=== PATIENT | female | born 1965 | race Caucasian/White ===

== ENCOUNTER 2021-12-28 10:14 | Outpatient (CLI) | payer OTHER, SELFPAY ==
[2021-12-28 10:35] LABS: Hematocrit 43.4 % (35.0-49.0); Hemoglobin 14.7 g/dL (12.0-15.0); Mean Corpuscular HGB Conc 33.9 g/dL (32.0-36.0); Mean Corpuscular Hemoglobin 33.1 pg (27.0-31.0); Mean Corpuscular Volume 97.7 fL (78.0-102.0); Platelet Count Result 254 K/mm3 (150-420); Red Blood Count 4.44 M/mm3 (4.20-5.40); Red Cell Distribution Width 12.6 % (11.6-14.4); White Blood Count 5.2 K/mm3 (4.8-10.8)
[2021-12-28 10:36] LABS: Appearance Urine Clear (Clear); Bilirubin Urine Negative (Negative); Color Urine Light Yellow (Yellow); Glucose Urine UA Negative (Negative); Ketones Urine Negative (Negative); Leukocyte Esterase Ur Trace (Negative); Nitrate Urine Negative (Negative); Protein Urine Negative (Negative); Urobilinogen Urine 0.2 mg/dL (0.2-1.0)
[2021-12-28 10:41] LABS: Add Urine Microscopic? YES; Blood Urine Trace-Intact (Negative); RBC Urine 0-2 /hpf (0-2); WBC Urine 0-3 /hpf (0-3)
[2021-12-28 10:42] LABS: Bacteria Urine Trace /hpf; Squamous Epithelial Cell Urine Few /hpf (Few)
[2021-12-28 11:08] LABS: Band Neutrophils Percent 0 % (0-6); Eosinophils Absolute Manual 0.62 K/mm3 (0.02-0.5); Eosinophils Percent Manual 12 % (1-6); Lymphocytes Absolute Manual 1.87 K/mm3 (1.1-4.5); Lymphocytes Percent Manual 36 % (18-44); Monocytes Absolute Manual 0.46 K/mm3 (0.1-0.90); Monocytes Percent Manual 9 % (3-9); Neutrophils Absolute Manual 2.23 K/mm3 (1.7-7.2); Neutrophils Percent Manual 43 % (46-73); Platelet Estimate Adequate (Adequate); Total Cells Counted 100
[2021-12-28 12:32] LABS: Alanine Aminotransferase 30 U/L (14-59); Alkaline Phosphatase 99 U/L (46-116); Anion Gap 12 mmol/L (8-16); Aspartate Amino Transferase 26 U/L (15-37); Bilirubin,Total 0.3 mg/dL (0.00-1.00); Blood Urea Nitrogen 17 mg/dL (7-18); Calcium 9.3 mg/dL (8.5-10.1); Carbon Dioxide 29 mmol/L (21-32); Chloride 104 mmol/L (98-108); Cholesterol 226 mg/dL (0-200); Estimated Glomerular Filt Rate > 60; Glucose 82 mg/dL (70-99); HDL Direct 57 mg/dL (40-60); LDL Cholesterol Calculated 146 mg/dL (<130); Osmolality Calculated 300 mOsm/kg (285-295); Potassium 4.3 mmol/L (3.5-5.1); Sodium 145 mmol/L (136-145); Thyroid Stimulating Hormone 1.35 uIU/mL (0.36-3.74); Triglycerides 115 mg/dL (0-150); Vitamin B12 454 pg/mL (193-986)
[2022-01-01 22:58] LABS: Methylmalonic Acid 161 nmol/L (87-318)
== END 2021-12-28 10:15 | disposition home or self-care (01) ==
LOC: CHSLAB 10:19
PROVIDERS: PCP Internal Medicine; Visit Provider Internal Medicine
DX: Z00.00 Encounter for general adult medical examination without abnormal findings (principal); E53.8 Deficiency of other specified B group vitamins
CPT/HCPCS: 36415; 80053; 80061; 81001; 82607; 83921; 84443; 85025

== ENCOUNTER 2023-02-12 08:16 | Outpatient (CLI) | payer OTHER, SELFPAY ==
--- NOTE | ~2023-02-12 | XR_ITS ---
XR chest 2V DATE: 02/12/2023 09:00 INDICATION: History of right breast cancer, hypertension. Previous smoker. TECHNIQUE: 2 views COMPARISON: 03/11/2010 PA and lateral chest FINDINGS: Normal heart size. No hilar or mediastinal enlargement. There is eventration of the anterior portion of the right leaf of the diaphragm. No pulmonary infiltrate or consolidation, pleural effusion or pulmonary vascular congestion or pneumo thorax. There is osteopenia. Surgical clips overlie the right upper abdomen, likely due to cholecystectomy. IMPRESSION: No active cardiopulmonary disease Right diaphragmatic eventration Reviewed, dictated and finalized at location L.
[2023-02-12 08:33] LABS: Hematocrit 42.6 % (35.0-49.0); Hemoglobin 14.2 g/dL (12.0-15.0); Mean Corpuscular HGB Conc 33.3 g/dL (32.0-36.0); Mean Corpuscular Volume 95.9 fL (78.0-102.0); Mean Platelet Volume 8.9 fl (9.2-11.8); Platelet Count Result 265 K/mm3 (150-420); Red Blood Count 4.44 M/mm3 (4.20-5.40); Red Cell Distribution Width 12.9 % (11.6-14.4); White Blood Count 5.2 K/mm3 (4.8-10.8)
--- NOTE | 2023-02-12 08:39 | ECG_ITS ---
Measurements Intervals [place] Rate: 59 P: -12 CO: 143 QRS: 56 QRSD: 105 T: 46 QT: 403 QTc: 400 Interpretive Statements SINUS BRADYCARDIA NONDIAGNOSTIC INJURY Q-WAVES BORDERLINE ECG NO PREVIOUS ECG AVAILABLE FOR COMPARISON Electronically Signed On 02-12-2023 16:33:41 CDT by Shaheed Devlin M.D.
[2023-02-12 08:47] LABS: Appearance Urine Clear (Clear); Bilirubin Urine Negative (Negative); Blood Urine Negative (Negative); Color Urine Yellow (Yellow); Glucose Urine UA Negative (Negative); Ketones Urine Negative (Negative); Leukocyte Esterase Ur Negative (Negative); Nitrate Urine Negative (Negative); Protein Urine Negative (Negative); Urobilinogen Urine 0.2 mg/dL (0.2-1.0)
[2023-02-12 09:07] LABS: Band Neutrophils Percent 0 % (0-6); Eosinophils Absolute Manual 0.31 K/mm3 (0.02-0.5); Eosinophils Percent Manual 6 % (1-6); Lymphocytes Absolute Manual 1.82 K/mm3 (1.1-4.5); Lymphocytes Percent Manual 35 % (18-44); Monocytes Absolute Manual 0.41 K/mm3 (0.1-0.90); Monocytes Percent Manual 8 % (3-9); Neutrophils Absolute Manual 2.65 K/mm3 (1.7-7.2); Neutrophils Percent Manual 51 % (46-73); Platelet Estimate Adequate (Adequate); Total Cells Counted 100
[2023-02-12 09:12] LABS: Alanine Aminotransferase 44 U/L (14-59); Albumin Level 3.9 g/dL (3.4-5.0); Alkaline Phosphatase 115 U/L (46-116); Anion Gap 8 mmol/L (8-16); Aspartate Amino Transferase 21 U/L (15-37); Bilirubin,Total 0.3 mg/dL (0.00-1.00); Blood Urea Nitrogen 16 mg/dL (7-18); Calcium 9.3 mg/dL (8.5-10.1); Carbon Dioxide 31 mmol/L (21-32); Chloride 102 mmol/L (98-108); Cholesterol 262 mg/dL (0-200); Estimated Glomerular Filt Rate > 60; Glucose 88 mg/dL (70-99); HDL Direct 57 mg/dL (40-60); LDL Cholesterol Calculated 170 mg/dL (<130); Osmolality Calculated 292 mOsm/kg (285-295); Potassium 4.5 mmol/L (3.5-5.1); Sodium 141 mmol/L (136-145); Thyroid Stimulating Hormone 2.14 uIU/mL (0.36-3.74); Total Protein 7.3 g/dL (6.4-8.2); Triglycerides 173 mg/dL (0-150)
[2023-02-12 09:24] LABS: Add Urine Microscopic? NO
== END 2023-02-12 08:17 | disposition home or self-care (01) ==
LOC: CHSLAB 08:19
PROVIDERS: PCP Internal Medicine; Visit Provider Internal Medicine
DX: Z00.00 Encounter for general adult medical examination without abnormal findings (principal); I10 Essential (primary) hypertension
CPT/HCPCS: 36415; 71046; 80053; 80061; 81003; 84443; 85025; 93005

== ENCOUNTER 2023-03-03 11:30 | Outpatient (CLI) | payer OTHER, SELFPAY ==
--- NOTE | ~2023-03-03 | XR_ITS ---
Lumbosacral Spine: AP and lateral views Clinical History: Pain Findings: The normal lordotic curve is maintained. 8 mm anterolisthesis of L4 over L5 noted. No fract ure seen. There is moderate facet arthropathy from L3 through S1. There is mild to moderate degenerat rg disc change at L4-L5, L5-S1. There is mild degenerative disc change at the upper lumbar spine. Th e sacroiliac joints are normally outlined. Impression: 8 mm anterolisthesis of L4 over L5. Mild to moderate degenerative change, as above. Reviewed, dictated and finalized at location M. Impression: 8 mm anterolisthesis of L4 over L5. Mild to moderate degenerative change, as above.
== END 2023-03-03 11:31 | disposition home or self-care (01) ==
LOC: CHSIMG 11:33
PROVIDERS: PCP Internal Medicine
DX: M54.50 Low back pain, unspecified (principal); M43.16 Spondylolisthesis, lumbar region
CPT/HCPCS: 72100

== ENCOUNTER 2023-03-09 08:25 | Outpatient (RCR) | payer OTHER, SELFPAY ==
--- NOTE | 2023-03-09 09:13 | PTOPEVAL1 ---
Assessment and note entered by Lb Sumner Evaluation Information Assessment Status Evaluation Diagnosis back pain Onset 03/09/22 Subjective Information Pt. reports that she developed low back pain close to 1 year ago. She reports that she had a fall down her steps around that time that developed her LBP. She was suppose to participate in therapy a long time ago, but developed Covid and did not attend therapy. She describes her pain around the area of the right PSIS. She reports she underwent xray last week which demonstrated an 8mm anteriolesthesis at L4-L5. She reports that pain can be constant for the most part. She states that it is worsened with standing for long periods of time, as well as sitting for long periods of time. She reports that getting out of a car is difficult due to pain. She reports that pain will wake her at night, espeicially with attempting to turn in bed. 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 She reports that her pain limits limits her from walking any adequate distance or standing for any adequate duration. She enjoys yard work, but cannot due to the increase in pain associated with doing these tasks . Reported Pain Level Pain Score 5: Self Report Assessment PT Clinical Summary Pt. is a 57 year old female who enters the clinic with low back pain. she presents with abdominal and proximal l.e. weakness, impaired postural awareness, impaired flexibility, and pain on this date. Continued skilled PT is indicated in order to improve these areas to allow the pt. to be able to complete all IADL's with improved comfort and efficiency. Plan of Care Interventions Electrical Stimulation,Gait Training,Hot Pack/Cold Pack,Manual Therapy,Patient/Caregiver Educati, Therapeutic Activities,Therapeutic Exercise,Self- Care/Home Management PT Services Indicated Yes Treatment Frequency and 2x/week x 10 visits Duration These treatments will address the objective and functional deficits as defined above. The patient will be advanced safely and appropriately in order for the patient to progress towards his/her prior level of function. Additional exercises will be introduced and as well as a comprehensive home exercise program upon discharge, if needed, ?to ensure carryover of functional gains achieved in the clinic. This chapito
== END 2023-04-08 09:50 | disposition home or self-care (01) ==
LOC: CHSPT 08:25
PROVIDERS: PCP Internal Medicine; Visit Provider Internal Medicine
DX: M54.9 Dorsalgia, unspecified (principal)
CPT/HCPCS: 97014; 97110; 97140; 97161; G0283

== ENCOUNTER 2025-05-04 08:55 | Outpatient (CLI) | payer OTHER, SELFPAY ==
--- NOTE | ~2025-05-04 | XR_ITS ---
EXAM/PROCEDURE: XR chest 2V - 05/04/2025 9:00 CDT HISTORY: 60 years old Female with HTN, cough, fatigue TECHNIQUE: Two view(s) of the chest. COMPARISON: None available. FINDINGS: LUNGS/ PLEURA: No focal consolidation. No appreciable pneumothorax or large pleural effusion. HEART/ MEDIASTINUM: Heart appears normal in size. BONES: No acute osseous abnormality. OTHER: Visualized upper abdomen is unremarkable. IMPRESSION: No acute process. Reviewed, dictated and finalized at location A. IMPRESSION: No acute process.
--- OUTSIDE RECORDS SUMMARY | 2025-05-04 09:04 | XMS_ITS | Data Portability ---
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 Stage I ductal carcinoma of the right breast: Clinically stable, without evidence of recurrence. MMG in May 2023 looked stable 2. Osteoporosis: Stable in July 2023. 10-year risk of hip fracture or major osteoporotic fracture are 2% and 15% respectively. She would prefer to avoid bisphosphonates or denosumab due to risk of osteonecrosis, continue calcium, vitamin D. 3. Joint pains: Primarily due to arthritis. Probably exacerbated by anastrazole. PLAN She is to continue with her anastrozole through September 2024. Her CBC from January 27, 2024 reveals WBC of 6.0, Hgb of 14.0, platelet count of 292,000 and ANC of 2.88. This was reviewed with her at the time of her visit. She was to have iron panel, vitamin D and Vitamin B12 level obtained. These were not obtained in January. We will get these today. She is due for repeat bone density in September 2025. Her most recent report revealed low bone density. She is on high risk medication, anastrozole, which may contribute to a decline in bone density. Her next mammogram will be due in May 2024. She is due for MRI of the breast in November 2024. These are ordered per her family services specialist. She is to return in six months with CBC, CMP and office visit. We will add iron panel and vitamin B12 level depending upon the results from this lab today. Sonali was encouraged to call should she have any problems or concerns between now and her next visit. She verbalizes understanding. I personally reviewed prior notes, treatment plans, labs, radiology reports and other reports as appropriate. I personally spent a total of 37 minutes on this patient on this date of service including both mdad-pw-qumw and ggb-bwoo-xt-face time excluding any separately reportable services. HISTORY OF PRESENT ILLNESS. - History of HER-2 positive breast cancer. - Completed 10 cycles of adjuvant chemotherapy with docetaxel and cyclophosphamide. - Completed her last cycle of trastuzumab back on May 25, 2015. - On adjuvant anastrazole. She will complete 10 years of this therapy in September 2024. SUBJECTIVE Patient of Dr. Warner Swan. Sonali returns to the office today for a scheduled follow up visit for her right breast cancer. She was last seen in the office on September 08, 2023. She complains of pain in the lower right back, right knee and both thumb joints. She rates this pain as a 4 on a scale of 0-10 with 10 being the worst. She rates her emotional status as a 10 on a scale of 0-10 with 10 being excellent. She complains of some neuropathy that is mild in nature. She denies the use of alternative therapies. She denies any fever, chills, body aches, headaches, nausea, vomiting, diarrhea, loss of smell or taste, sore thoat, shortness of breath, or other symptoms of infection. REVIEW OF SYMPTOMS/SYSTEMS: She does not complain of the following symptoms: Fever/chills, Fatigue/weakness, Appetite changes, Changes in sleep habits, Bruising/bleeding, Fluid retention, Pain, Visual changes, Itching/tearing eyes, Ringing in the ears, Epistaxis, Stomatitis, Difficulty swallowing, Chest pain, Rapid or irregular heartbeat, Dyspnea, Cough, Nausea/vomiting, Constipation, Diarrhea, Indigestion/gas, Blood in stools, Changes in urination, Changes in menses, Sexual concerns, Rashes, Hair loss, Nail changes, Muscle weakness, Loss of memory/concentration , Headaches, Dizziness, Cold sensitivity, Emotional complaints. She takes medications for COPD, breast cancer, migraines. These issues are stable except as listed above. For details of past history, see assessment. She denies any changes to past medical history, social history, personal and family history since her visit on September 08, 2023. PHYSICAL EXAM: PERFORMANCE STATUS: 90% Karnofsky. Head: Normocephalic. Eyes: Pupils round, equal and reactive. EOM intact. No scleral icterus or erythema is noted. Ears: Hearing is grossly normal. Mouth/Throat: Mucous membranes are moist. No erythema, exudate, injection, or oral lesions are noted. Lymphatics: No cervical, supraclavicular or axillary lymphadenopathy noted. Lungs: Clear bilaterally. Heart: Normal S1 and S2. Regular rhythm without murmurs. Breast: Right breast lumpectomy incision is well healed. There is no evidence of local recurrence. There are no dominant masses noted in either breast. Abdomen: Soft, nontender wall. No obvious masses, hepatosplenomegaly or hernias. Extremities: No cyanosis or clubbing. No edema. Neurological: Alert and oriented. No focal deficits. Psychiatric: Mood and affect are appropriate. Skin: No bruising or petechia noted. No rashes noted. ONCOLOGY THERAPY DIAGNOSIS: 1. Stage 1 (pT1b, pN0, R-, M0) invasive ductal carcinoma of the right breast, 1 cm in greatest dimension, nuclear grade 2 or 3, without lymph or vascular invasion. Strongly positive for estrogen receptors and moderately positive for progesterone receptors, HER2/waldemar equivocal by immunohistochemistry . Testing was equivocal of FISH and was positive on repeat. 2. Osteopenia (low bone mass) CURRENT THERAPY: 1. Adjuvant anastrazole 1 mg PO daily starting 09/29/14. PREVIOUS THERAPY: 1. Ultrasound guided core biopsy of the right breast, March 14, 2014. 2. Right breast lumpectomy and sentinel node biopsy on March 30, 2014 at [facility], Dr. Javi Basilio, surgeon. 3. Six cycles of adjuvant docetaxel 75 mg/m2 day 1, and cyclophosphamide 600 mg/m2 day 1, every 21 days staring May 11, 2014. Herceptin was added (4 mg/kg) with cycle 2 after the repeat testing of HER2/waldemar came back positive. 4. Adjuvant radiation to the right breast. She started treatment on September 19, 2014. After 16 fractions of whole breast irradiation at the daily dose of 2.66 Gy, an electron beam boost was set up to treat the inner portion of the right breast at the 3 o'clock position using a 9 x 9-cm cutout with 12 MeV electrons at the 90% isodose line. A daily dose of 2 Gy was planned for the boost, and 4 boost fractions delivered. The patient then completed the boost treatment on October 17, 2014. A total dose of 50.56 Gy had been delivered to the lumpectomy site. 5. Adjuvant trastuzumab 6 mg/kg day 1 every 21 days starting September 15, 2014. Completed 11 additional cycles of May 25, 2015. Assessment Assessed 1. Breast cancer, right breast (C50.911) 2. Osteopenia (M85.80) 3. Encounter for monitoring aromatase inhibitor therapy (Z51.81,Z79.811) [email or web address] Not available 03/17/2024 10:03:57 09/13/2024 09/13/2024 ASSESSMENT 1. Stage I ductal carcinoma of the right breast: Clinically stable, without evidence of recurrence. MMG in May 2024 looked stable 2. Osteoporosis: Stable in July 2023. 10-year risk of hip fracture or major osteoporotic fracture are 2% and 15% respectively. She would prefer to avoid bisphosphonates or denosumab due to risk of osteonecrosis, continue calcium, vitamin D. 3. Joint pains: Primarily due to arthritis. Probably exacerbated by anastrazole. PLAN 1. Discontinue anastrazole in 2 weeks 2. Repeat bone density in September 2025, then every 5 years 3. Repeat breast MRI in November 2024 4. Repeat MMG May 2025. SUBJECTIVE: The patient comes in today for follow up for breast cancer. She complains of chronic, stable pain in the lower right back, right knee and both thumb joints. She rates this pain as a 4 on a scale of 0-10 with 10 being the worst. She rates her emotional status as a 10 on a scale of 0-10 with 10 being excellent. She complains of some neuropathy that is mild and chronic in nature. She denies any fever, chills, body aches, headaches, nausea, vomiting, diarrhea, loss of smell or taste, sore thoat, shortness of breath, or other symptoms of infection. REVIEW OF SYMPTOMS/SYSTEMS: She does not complain of the following symptoms: Fever/chills, Fatigue/weakness, Appetite changes, Changes in sleep habits, Bruising/bleeding, Fluid retention, Pain, Visual changes, Itching/tearing eyes, Ringing in the ears, Epistaxis, Stomatitis, Difficulty swallowing, Chest pain, Rapid or irregular heartbeat, Dyspnea, Cough, Nausea/vomiting, Constipation, Diarrhea, Indigestion/gas, Blood in stools, Changes in urination, Changes in menses, Sexual concerns, Rashes, Hair loss, Nail changes, Muscle weakness, Loss of memory/concentration , Headaches, Dizziness, Cold sensitivity, Emotional complaints. PHYSICAL EXAM: GENERAL APPEARANCE: Alert and oriented x3, no acute distress. HEENT: Atraumatic and normocephalic, no scleral icterus or erythema CHEST: Breathing normally, no tachypnea or signs of distress DERM: No significant bruising, rash, jaundice PSYCH: Normal mood, affect, judgment ONCOLOGY THERAPY DIAGNOSIS: 1. Stage 1 (pT1b, pN0, R-, M0) invasive ductal carcinoma of the right breast, 1 cm in greatest dimension, nuclear grade 2 or 3, without lymph or vascular invasion. Strongly positive for estrogen receptors and moderately positive for progesterone receptors, HER2/waldemar equivocal by immunohistochemistry . Testing was equivocal of FISH and was positive on repeat. 2. Osteopenia (low bone mass) CURRENT THERAPY: 1. Adjuvant anastrazole 1 mg PO daily starting 09/29/14. Discontinued 09/29/24 PREVIOUS THERAPY: 1. Ultrasound guided core biopsy of the right breast, March 14, 2014. 2. Right breast lumpectomy and sentinel node biopsy on March 30, 2014 at [facility], Dr. Javi Basilio, surgeon. 3. Six cycles of adjuvant docetaxel 75 mg/m2 day 1, and cyclophosphamide 600 mg/m2 day 1, every 21 days staring May 11, 2014. Herceptin was added (4 mg/kg) with cycle 2 after the repeat testing of HER2/waldemar came back positive. 4. Adjuvant radiation to the right breast. She started treatment on September 19, 2014. After 16 fractions of whole breast irradiation at the daily dose of 2.66 Gy, an electron beam boost was set up to treat the inner portion of the right breast at the 3 o'clock position using a 9 x 9-cm cutout with 12 MeV electrons at the 90% isodose line. A daily dose of 2 Gy was planned for the boost, and 4 boost fractions delivered. The patient then completed the boost treatment on October 17, 2014. A total dose of 50.56 Gy had been delivered to the lumpectomy site. 5. Adjuvant trastuzumab 6 mg/kg day 1 every 21 days starting September 15, 2014. Completed 11 additional cycles of May 25, 2015. [email or web address] Not available 09/25/2024 19:39:03 01/24/2025 01/24/2025 IMPRESSION: 1. Normal annual gynecologic exam. 2. No evidence of recurrent breast cancer. 3. Off Anastrozole. 4. Needs to increase her exercise habits. 5. Up to date with her screens including lipids and colon cancer by Dr. Gilbert and Rloa. PLAN: I reviewed with Sonali the need to start taking care of herself. She is getting pulled in all directions trying to babysit her grandchildren along with taking care of her ex-. I explained that now that she is off Anastrozole, breast cancer is no longer an issue. She needs to start taking time for herself to maintain her good health. We did discuss diet options also. We will plant to repeat a bone density on her in July since she did have significant low bone mass at -2.2. I will plan to see her back in a year and sooner with any other problems. I hope her daughter has success getting her endometriosis adequately taken care of. [email or web address] Not available 01/24/2025 15:00:35 Plan of Treatment Reminders Order Date Submit Date Provider Last Modified By Organization Details Last Modified Time Details Appointments Imaging 5.PRO 2024 09:00A M Radiology Not available Not available Not available [facility] Patient 20.EST 2024 09:40A M Dr. Param Hudson Not available Not available Not available Annual [facility] Visit 10.EST 2025 09:30A M Dr. Juventino Arango Not available Not available Not available Lab None recorded . Referral None recorded . Procedures None recorded . Surgeries None recorded . Imaging bone density 2024 025 [email or web address] [facility], [address] [place] [address], [id number], 01/24/2025 21:49:39 MAMMO, screenin g, digital, bilatera l 2024 025 [email or web address] [facility], [address] [place] [address], [id number], 01/24/2025 21:49:39 Medication Orders None recorded . Patient TargetsNo targets recorded. Patient InstructionsNo instructions recorded. Reason for Referral None Reported. Results Created Date Observation Date Name Description Value Unit Range Abnormal Flag Note LastModifiedBy Organization Detail LastModifiedTime 03/14/20 24 03/14/2024 iron panel , serum or plasm a iron panel Not Available [facility] [address] [place] [address], [id number], 03/14/2024 16:16:48 03/14/20 24 03/14/2024 iron panel , serum or plasm a iron 46 ug/dL 50-212 low Not Available [facility] [address] [place] [address], [id number], 03/14/2024 16:16:48 03/14/20 24 03/14/2024 iron panel , serum or plasm a % saturation 16 % 20-55 low Not Available [facility] [address] [place] [address], [id number], 03/14/2024 16:16:48 03/14/20 24 03/14/2024 iron panel , serum or plasm a ferritin 80 NG/mL 12-150 Not Available [facility] [address] [place] [address], [id number], 03/14/2024 16:16:48 03/14/20 24 03/14/2024 iron panel , serum or plasm a TIBC. 296 ug/dL 205 - 512 Not Available [facility] [address] [place] [address], [id number], 03/14/2024 16:16:48 03/14/20 24 03/14/2024 vitam in B12, serum vitamin B12 344 pg/mL 180-91 4 <145 pg/mL = Defic ient 145 - 180 pg/mL = Inter media te Not Available [facility] [address] [place] [address], [id number], 03/14/2024 16:16:50 03/14/20 24 03/14/2024 vitam in D, 25-hy droxy , total , serum vitamin D 25-hydroxy totl 38.0 NG/mL 30.0-8 0.0 Less than 20 ng/mL Defic iency 20-29 ng/mL Insuf ficie ncy 30-80 ng/mL Optim al Great er than 80 ng/mL Possi ble toxic ity Not Available [facility] [address] [place] [address], [id number], 03/14/2024 16:16:52 03/14/20 24 03/14/2024 iron panel , serum or plasm a iron panel Not Available [facility] [address] [place] [address], [id number], 03/14/2024 16:11:47 03/14/20 24 03/14/2024 iron panel , serum or plasm a iron 46 ug/dL 50-212 low Not Available [facility] [address] [place] [address], [id number], 03/14/2024 16:11:47 03/14/20 24 03/14/2024 iron panel , serum or plasm a % saturation 16 % 20-55 low Not Available [facility] [address] [place] [address], [id number], 03/14/2024 16:11:47 03/14/20 24 03/14/2024 iron panel , serum or plasm a ferritin PENDIN G Not Available [facility] [address] [place] [address], [id number], 03/14/2024 16:11:47 03/14/20 24 03/14/2024 iron panel , serum or plasm a TIBC. 296 ug/dL 205 - 512 Not Available [facility] [address] [place] [address], [address], 03/14/2024 16:11:47 03/14/20 24 03/14/2024 iron panel , serum or plasm a iron panel Not Available [facility] [address] [place] [address], [id number], 03/14/2024 16:09:04 03/14/20 24 03/14/2024 iron panel , serum or plasm a iron 46 ug/dL 50-212 low Not Available [facility] [address] [place] [address], [id number], 03/14/2024 16:09:04 03/14/20 24 03/14/2024 iron panel , serum or plasm a % saturation PENDIN G Not Available [facility] Only - [facility] [address] [place] [address], [id number], 03/14/2024 16:09:04 03/14/20 24 03/14/2024 iron panel , serum or plasm a ferritin PENDIN G Not Available [facility] Only - [facility] [address] [place] [address], [id number], 03/14/2024 16:09:04 03/14/20 24 03/14/2024 iron panel , serum or plasm a TIBC. PENDIN G Not Available [facility] Only - [facility] [address] [place] [address], [id number], 03/14/2024 16:09:04 06/09/20 24 03/03/2023 imagi ng/di agnos tic resul t No observ ation record ed. [email or web address] Not Available 06/09/2024 19:57:08 06/13/20 24 06/13/2024 MAMMO , scree raudel, digit al, bilat eral [address] [address] Tele one Name: PAKO COLUNGA [id number] am Date: 2023 Age: 59Phys ician: MD CONCHITA, KAYKAY Ricketts : 1964Ex aminat ion: MAMM BILATE RAL DIGITA L SCREEN ING EXAM: MAMM BILATE RAL DIGITA L SCREEN ING, MAMM SCREEN ING TOMOSY NTHESI S ACCESS ION: [id number] 24, [id number] 25 EXAM DATE: 024 11:15 AM HISTOR Y: This is a 59-yea r-old female . She presen ts for her screen ing mammog ruddy with no breast compla ints. COMPAR NICOLASA: Prior studie s dating back to 04/30/20 20. DENSIT Y: There are scatte red areas of fibrog landul ar densit y. FINDIN GS: 2D digita l compos ite views as well as 3D digita l tomosy nthesi s views were perfor med. There are no suspic ious masses , calcif icatio ns, or other findin gs within either breast . IMPRES TIARA: There is no mammog raphic eviden ce of malign germain. The patien t should return in one year for her annual mammog ruddy. She should return sooner if clinic ally indica luis carlos. ASSESS MENT: BI-RAD S 1: Negati ve. RECOMM ENDATI ON: 1. Screen ing Mammog ruddy in 1 year. COMMEN TS: The patien t will be entere d into an automa luis carlos remind er system for a screen ing mammog ruddy in 1 year. The patien t has been or will be contac luis carlos with the result s of this exam. Electr onical ly signed in Sanchez cribe by: YAZMIN MONTES RES, MD on:05/26 10:36 AM cc: [facility] [email or web address] [facility] [address] [place] [address], [id number], 06/13/2024 12:54:10 04/28/20 25 11/29/2019 imagi ng/di agnos tic resul t No observ ation record ed. [email or web address] Not Available 0 04/28/2025 21:43:48 04/28/20 25 08/31/2018 imagi ng/di agnos tic resul t No observ ation record ed. [email or web address] Not Available 0 04/28/2025 21:44:21 Result Notes Documentation Provider Name and Address Organization Details Recorded Time Mammo, Screening, Digital, Bilateral : [address] [address] Name: SONALI COLUNGA Date: 06/13/2024 Age: 59Physician: MD ARANGO WILLIAM : 1965Examination: MAMM BILATERAL DIGITAL SCREENING EXAM: MAMM BILATERAL DIGITAL SCREENING, MAMM SCREENING TOMOSYNTHESIS [id number] EXAM DATE: 06/13/2024 11:15 AM HISTORY: This is a 59-year-old female. She presents for her screening mammogram with no breast complaints. COMPARISON: Prior studies dating back to 04/30/2020. DENSITY: There are scattered areas of fibroglandular density. FINDINGS: 2D digital composite views as well as 3D digital tomosynthesis views were performed. There are no suspicious masses, calcifications, or other findings within either breast. IMPRESSION: There is no mammographic evidence of malignancy. The patient should return in one year for her annual mammogram. She should return sooner if clinically indicated. ASSESSMENT: BI-RADS 1: Negative. RECOMMENDATION: 1. Screening Mammogram in 1 year. COMMENTS: The patient will be entered into an automated reminder system for a screening mammogram in 1 year. The patient has been or will be contacted with the results of this exam. Electronically signed in PowerScribe by: YAZMIN MILTON MD on:06/13/2024 10:36 AM cc: Page PAGE 1 of [facility] 1 Juventino Arango MD [address] [place] [address], [id number], [facility] 06/13/2024 12:54:10 Problems Name Problem SNOMED Code Status Onset Date Resolution Date Notes Provider Name and Address Organization Details Recorded Time Senile osteoporosi s 78792902 Active 2023 Brandon Swan MD [address] [place] [address], [phone], [facility] 16:44:37 Menopausal syndrome 144876258 Active 2024 Carmela Li, DISEASE EDUCATION SPECIALIST [address] [place] [address], [phone], [facility] 5 12:18:18 Infiltratin g duct carcinoma of right female breast 2955957038110 102 Active [address] [facility] 4 09:57:07 Malignant neoplasm of female breast 006147027 Active [address] [facility] 4 07:41:01 Iron deficiency anemia 45454034 Active [address] [facility] 4 07:41:31 Problem Notes None recorded. Procedures Surgical History Date Name Laterality Status Provider Name and Address Organization Details Recorded Time 06/13/20 24 Date of Last Mammogram completed [facility] [address], [address], [facility] 01/24/2025 11:49:46 07/26/20 23 Most Recent [facility] [address], [address], [facility] 01/24/2025 11:50:01 09/11/20 21 Date of Last Pap Smear completed Carmela Li, [place] [address] [address], [address], [facility] 01/24/2025 11:49:54 02/24/20 20 [facility] [address], [address], [facility] 01/24/2025 11:49:38 Appendectomy completed Not Available Health Note 09/11/2024 14:11:02 Colonoscopy with biopsy completed Not Available Health Note 09/11/2024 14:11:02 Removal of gallbladder completed Not Available Health Note 09/11/2024 14:11:02 Imaging Results None recorded. Procedure Notes None recorded. Medical Equipment None Reported. Allergies Allergen ID Allergen Name Allergen Category Reaction Reaction Severity Criticality Documentation Date Start Date Code Code System Note Provider Name and Address Organization Details Recorded Time 1375309 codeine medicatio n other Not available Not available 11/25/20232014 2670 RxNorm React ion: GI Upset ; Not Available [facility] 4 03:59:50 645800 Tape [id number] medicatio n rash Not available Not available 11/23/20232014 11899 UNK React ion: Rash; Not Available [facility] 4 22:46:19 454098 doxycycli ne hyclate medicatio n rash Not available Not available 11/23/20232015 89558 RxNorm React ion: Rash; Comme nt: React ion Date: 20 Dec 2015 ; Not Available [facility] 4 22:46:20 Medications Name Sig Start Date Stop Date Status Note LastModified by Organization Details LastModified Time anastrozole 1 mg tablet Take 1 tablet by mouth once daily 01/24 completed Not Available Not Available Not Available propranolol ER 60 mg capsule,24 hr,extended release TAKE 1 CAPSULE BY MOUTH EVERY DAY AT BEDTIME active Not Available Not Available No t Available omeprazole 40 mg capsule,del ayed release TAKE 1 CAPSULE BY MOUTH ONCE DAILY BEFORE A MEAL active Not Available Not Available No t Available butalbital- acetaminoph en-caffeine 50 mg-325 mg-40 mg tablet TAKE 1 TABLET BY MOUTH THREE TIMES DAILY NEEDED FOR HEADACHE 09/13 completed Not Available Not Available Not Available diclofenac sodium 75 mg tablet,viky yed release TAKE 1 TABLET BY MOUTH TWICE DAILY NEEDED active Not Available Not Available No t Available glucosamine -chondroiti n active Not Available Not Available Not Available multivitami n active Not Available Not Available Not Available Calcium 500 + D active Not Available Not Available Not Available diclofenac [address]-capsicum oleoresin 0.025 % cream kit 09/13 completed Not Available Not Available Not Available Tylenol 325 mg capsule Take by oral route. active Not Available Not Available No t Available Voltaren Arthritis Pain 1 % topical gel APPLY 2 GRAMS TO THE AFFECTED AREA(S) BY TOPICAL ROUTE 4 TIMES PER DAY active Not Available Not Available No t Available Vitals Date Recorded Body height Body mass index (BMI) Body weight Systolic And Diastolic Provider Name and Address Organization Details Last Updated DateTime 01/24/2025 167.64 cm 33.9 kg/m2 83676.4 g 122/80 mm[Hg] Carmela Li, DISEASE EDUCATION SPECIALIST [address], [address], [facility] 01/24/2025 11:59:35 Date Recorded Body height Heart rate Oxygen saturation Oxygen saturation in Arterial blood by Pulse oximetry Respiratory rate Body temperature Body mass index (BMI) Body weight Systolic And Diastolic Provider Name and Address Organization Details Last Updated DateTime 4 167.64 cm 67 /min 99 % 99 % 16 /min 97.3 [degF] 33.1 kg/m2 86094.1 5 g 120/78 mm[Hg] Luann Natarajan [facility] 4 13:00:03 Date Recorded Body height Oxygen saturation Oxygen saturation in Arterial blood by Pulse oximetry Heart rate Respiratory rate Body temperature Body mass index (BMI) Body weight Systolic And Diastolic Provider Name and Address Organization Details Last Updated DateTime 4 167.64 cm 97 % 97 % 73 /min 20 /min 97.3 [degF] 33.6 kg/m2 14498.9 3 g 132/80 mm[Hg] Sophie Dayton [facility] 4 11:18:31 Social History Question Answer Notes LastModified by Rebelle Details LastModified Time Tobacco Smoking Status Former Smoker Not Available Health Note 09/11/2024 14:11:02 Do You Have An Advance Directive? No [email or web address] Information not available 09/11/2024 What Is Your Level Of Caffeine Consumption? Moderate [email or web address] Information not available 09/11/2024 How Many Times Per Week Do You Exercise? Less Than 1 Time Per Week [email or web address] Information not available 09/11/2024 When Did You Quit Smoking? 32 Years Ago [email or web address] Information not available 09/11/2024 What Was The Date Of Your Most Recent Tobacco Screening? 09/13/2024 [email or web address] Information not available 09/11/2024 What Is Your Relationship Status? Domestic Partner [email or web address] Information not available 09/11/2024 Sex: Unknown Functional Status Question Answer Note LastModified by Rebelle Details LastModified Time How many times per week do you consume alcohol? Less than 1 time per week [email or web address] Information not available 09/11/2024 Do you use any illicit or recreational drugs? No [email or web address] Information not available 09/11/2024 What is your level of alcohol consumption? Occasional [email or web address] Information not available 09/11/2024 Are you currently employed? No [email or web address] Information not available 09/11/2024 What is your occupation? Retired [email or web address] Information not available 09/11/2024 What is your exercise level? Occasional [email or web address] Information not available 09/11/2024 Mental Status None recorded. Family History Relationship Description Onset Age of this Age Resolved Age Notes LastModified by Organization Details LastModified Time Mother Arthritis [email or web address] Not available 09/11/2024 14:11:01 Mother Hypertensive disorder [email or web address] Not available 2023 14:11:01 Mother Hypercholest erolemia [email or web address] Not available 2023 14:11:01 Mother Kidney disease [email or web address] Not available 2023 14:11:01 Mother Osteoporosis [email or web address] Not availa ble 09/11/2024 14:11:01 Sister Arthritis [email or web address] Not available 09/11/2024 14:11:01 Sister Chronic obstructive pulmonary disease [email or web address] Not available 2023 14:11:01 Sister Hypertensive disorder [email or web address] Not available 2023 14:11:01 Sister Hypercholest erolemia [email or web address] Not available 2023 14:11:01 Maternal Grandmother Arthritis [email or web address] Not available 08/26 14:11:01 Maternal Grandmother Osteoporosis [email or web address] Not available 11/11/2023 14:11:01 Father Family history of malignant neoplasm [email or web address] Not available 2023 14:11:01 Father Hypertensive disorder [email or web address] Not available 2023 14:11:01 Father Hypercholest erolemia [email or web address] Not available 2023 14:11:01 Maternal Grandfather Family history of malignant neoplasm [email or web address] Not available 2023 14:11:01 Paternal Grandfather Family history of malignant neoplasm [email or web address] Not available 2023 14:11:01 Medical History Condition Response Diabetes N Anxiety Disorder N Bleeding Disorder N Attention-deficit Hyperactivity Disorder N High Blood Pressure N Arthritis Y Hyperlipidemia N Cancer N Stroke N Thyroid Problems N Asthma Y Depression N COPD N Anemia N Seizures N Heart Disease N Fibromyalgia N Osteoporosis N Kidney Disease N Gynecological History Statement/Question Response Date of Last Pap Smear 09/11/2021 Current Control Method Menopause Date of Last Mammogram 06/13/2024 Most Recent Bone Density 07/26/2023 Colonoscopy 02/24/2020 Obstetrics History GPAL:G 3 P 0 0 0 3 Type Value Living 3 Total 3 Immunizations Vaccine Type Date Status Note Provider Nam e and Address Organization Details Recorded Time Influenza, split virus, trivalent, PF [address] [facility] 09/13/2024 11:19:17 Influenza, split virus, quadrivalent, preservative [address] [facility] 03/14/2024 13:00:36 Influenza, split virus, quadrivalent, preservative [address] [facility] 03/14/2024 13:00:36 zoster recombinant [address] [facility] 03/14/2024 13:00:36 zoster recombinant [address] [facility] 03/14/2024 13:00:36 COVID-19, mRNA, LNP-S, PF, 30 mcg/0.3 mL dose [address] [facility] 03/14/2024 13:00:36 COVID-19, mRNA, LNP-S, PF, 30 mcg/0.3 mL dose [address] [facility] 03/14/2024 13:00:36 COVID-19, mRNA, LNP-S, PF, 30 mcg/0.3 mL dose [address] [facility] 03/14/2024 13:00:36 Pneumococcal conjugate PCV20, polysaccharide [id number] conjugate, adjuvant, PF [address] [facility] 03/14/2024 13:00:36 [facility] 6 [facility] 13:00:36 Influenza, split virus, trivalent, preservative [address] [facility] 03/14/2024 13:00:36 Influenza, split virus, trivalent, preservative 3 [facility] 13:00:37 Influenza, split virus, trivalent, preservative [address] [facility] 03/14/2024 13:00:37 Influenza, split virus, trivalent, PF [address] [facility] 03/14/2024 13:00:37 Influenza, split virus, trivalent, PF [address] [facility] 03/14/2024 13:00:37 Influenza, split virus, quadrivalent, PF [address] [facility] 03/14/2024 13:00:37 Influenza, split virus, quadrivalent, PF [address] [facility] 03/14/2024 13:00:37 Influenza, split virus, quadrivalent, PF [address] [facility] 03/14/2024 13:00:37 Influenza, split virus, quadrivalent, PF [address] 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 3117780691 346033 C50.911 Iron defic iency anemia 44509910 D50.9 [id number] Brandon Swan MD [address] [facility] ([place]) [address] [place] [address] 09/13/2024 10:51:35 09/13/2024 11:45:56 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 6159985633 101163 C50.911 Iron defic iency anemia 27009280 D50.9 Senile osteoporosis 1804 0001 M81.0 [id number] Juventino Arango MD [address] [facility] ([place]) [address] [place] [address] 2 [place] [address] 01/24/2025 11:44:23 01/24/2025 12:42:57 Breast neoplasm screening status 872315185 Z12.31 Menopausal syndrome 1237 22570 N95.1 Gynecologi c examination 95479783 Z01.419 Health Concerns Section Related Observation LastModified by Organization Detai ls LastModified Time None Recorded Concern Status LastModified by Organization Details LastModified Time None Recorded Advance Directives Directive N: Payers Insurance Date Sequence Insurance Name Policy Number Policy Beckham Covered Member ID Beckham Member ID Guarantor Name 01/24/2025 1 [employer] ([id number] Sonali Colunga [id number] Sonali Colunga Notes Date Note Type Note Provider Name and Address Organization Details Recorded Time 09/13/2024 text/html [place] [facility] Chemo[facility] orted bypatient.Are you taking your oral chemotherapy exactly as prescribedNA Have you missed any doses of your oral chemotherapy since your last visit to this officeNA Do you have questions or concerns about your oral chemotherapy treatmentNA Fully active; no restrictionsYes Any PHYSICAL HEALTH complaints todayNo Any emotional health concerns?No Are you exposed to second hand smoke?No Brandon Swan MD [address] [place] [address], [id number], [facility] 09/25/2024 19:39:12 01/24/2025 text/html CHIEF COMPLAINT:Annual gynecologic exam, history of right breast lumpectomy in 2023 status post radiation and Anastrozole x10 years. HISTORY OF PRESENT ILLNESS:Sonali is in today for annual gynecologic exam. She is a very pleasant 59-year-old female who is in for annual gynecologic exam. She had seen Dr. Swan for her breast cancer and she was 10 years out, and so they stopped the Anastrozole. I did give her the names of some of the oncologists upstairs to follow up with although she probably does not really need to see them much any longer at this point in time. I told her we are happy to order mammograms for her if need be. Sonali denies any pelvic pain or discomfort, unusual discharge or dyspareunia. She does remain sexually active with her boyfriend. Sonali has had no recent surgeries. She does not smoke, drink excessively, or use any recreational drugs. Really not getting much in the way of exercise. As mentioned, she remains sexually active. She is 3, para 3. She does have one daughter who is 35 but unfortunately has severe endometriosis and is in a lot of pain from that. Sonali is watching her grandchildren, I believe for one of her other kids, so watches two of them. She has also been under a lot of stress trying to help take care of her ex- who has colon and prostate cancer. FAMILY HISTORY:Unchanged. Juventino Arango MD [address] [facility], [place], [address], [place] [facility] 01/25/2025 12:18:58 OBGyn Episode No OBEpisode recorded.
== END 2025-05-04 08:56 | disposition home or self-care (01) ==
LOC: CHSIMG 08:57
PROVIDERS: PCP Internal Medicine; Visit Provider Internal Medicine
DX: I10 Essential (primary) hypertension (principal); R05.9 Cough, unspecified; R53.83 Other fatigue; M25.50 Pain in unspecified joint
CPT/HCPCS: 71046